=== PATIENT | female | born 1970 | race African-American/Black ===

== ENCOUNTER 2017-05-20 08:11 | Emergency (ER) | payer MEDICARE, MEDICAID ==
[2017-05-20] MEDS ORDERED: Lidocaine 1% w/Epinephrine 1:100K 20 ML VIAL ONE (09:29)
[2017-05-20] MEDS ORDERED: Sodium Bicarbonate 2.4 MEQ/5 ML ONE (09:48)
== END 2017-05-20 10:35 | disposition home or self-care (01) ==
LOC: ERS 08:11
DX: L02.412 Cutaneous abscess of left axilla (principal); E11.9 Type 2 diabetes mellitus without complications; E78.5 Hyperlipidemia, unspecified; I10 Essential (primary) hypertension; F32.9 Major depressive disorder, single episode, unspecified; F20.9 Schizophrenia, unspecified; Z79.899 Other long term (current) drug therapy; Z79.4 Long term (current) use of insulin
CPT/HCPCS: 10060; J2001

== ENCOUNTER 2017-07-23 02:45 | Emergency (ER) | payer MEDICARE, OTHER ==
[2017-07-23] MEDS ORDERED: Nitroglycerin 0.4 MG TAB (25 Tab Bottle) ONE (03:32)
[2017-07-23 03:37] LABS: #Basophils 0.1 thou/uL (0.0-0.2); #Eosinphils 0.1 thou/uL (0.0-0.7); #Lymphocytes 4.4 thou/uL (1.20-3.40); #Monocytes 0.5 thou/uL (0.11-0.59); #Neutrophils 5.6 thou/uL (1.40-6.50); %Basophils 0.5 % (0.0-1.0); %Eosinophils 1.3 % (0.0-10.0); %Lymphocytes 40.8 % (21.0-51.0); %Monocytes 4.9 % (0.0-10.0); %Neutrophils 52.6 % (42.0-75.0); Mean Corpuscular HGB CONC 33.5 g/dL (32.0-36.0); Mean Corpuscular Hemoglobin 28.7 pg (27.0-31.0); Mean Corpuscular Volume 85.7 fl (81.0-99.0); Mean Platelet Volume 7.6 fL (7.4-10.4); Platelet Count 340 thou/uL (130-400); RBC Distribution Width 11.8 % (11.5-14.5); Red Blood Cell (RBC) Count 4.52 mill/uL (4.20-5.40); White Blood Cell (WBC) Count 10.7 thou/uL (4.8-10.8)
[2017-07-23 03:51] LABS: ALT (SGPT) 12 U/L (8-55); AST (SGOT) 9 U/L (5-34); Albumin 3.8 g/dL (3.5-5.0); Alkaline Phosphatase 177 U/L (40-150); Anion Gap 13 mmol/L (10-20); BUN (Urea Nitrogen) 13 mg/dL (7.0-18.7); Bilirubin, Total 0.4 mg/dL (0.2-1.2); CK (CPK) 39 U/L (29-168); Calc. Creatinine Clearance 0 mL/min (70-130); Calcium 9.6 mg/dL (7.8-10.44); Carbon Dioxide 24 mmol/L (22-29); Chloride 101 mmol/L (98-107); Estimated GFR-MDRD 66; Glucose 522 mg/dL (70-105); Lipase 5 U/L (8-78); Protein, Total 7.8 g/dL (6.0-8.3); Sodium 134 mmol/L (136-145)
[2017-07-23 03:54] LABS: CKMB 0.6 ng/mL (0-6.6); Troponin I Less than 0.010 ng/mL (< 0.028)
[2017-07-23 03:58] LABS: Base Excess-Venous 0.2 mmol/L (0 (+/- 2.5)); Bicarbonate (HCO3v) 27.3 mmol/L (1.0-85.0); CO2 Tension (PvCO2) 53.3 mmHg (41.0-51.0); Calcium, Ionized 1.19 mmol/L (1.12-1.32); Hemoglobin - Calc 13.5 g/dL (12.0-18.0); O2 Tension (PvO2) 24.7 mmHg (35.0-45.0); Potassium 3.9 mmol/L (3.4-4.7); T. Carbon Dioxide 28.9 mmol/L (1.0-85.0); pH (Venous) 7.317 (7.35-7.45); vO2 Saturation-calc 38.4 % (94-98)
[2017-07-23 04:13] LABS: Bilirubin Negative (Negative); Blood, Urine Negative (Negative); Clarity CLEAR (Clear); Glucose, Urine (Dipstick) >=1000 mg/dL (Negative); Leukocyte Negative (Negative); Nitrite Negative (Negative); Protein, Urine (Dipstick) Negative (Neg-Trace); Specific Gravity, Urine 1.037 (1.002-1.036); Urobilinogen 0.2 mg/dL (0.2-1.0); pH, Urine 5.5 (5.0-9.0)
[2017-07-23 07:22] LABS: CKMB 0.6 ng/mL (0-6.6); Troponin I Less than 0.010 ng/mL (< 0.028)
[2017-07-23] MEDS ORDERED: Insulin Regular 300 UNITS/3 ML VIAL ONE (07:48)
--- NOTE | 2017-07-23 08:51 | RAD ---
FRONTAL VIEW CHEST: Date: 07/23/17 INDICATION: Chest pain. COMPARISON: 08/21/15. FINDINGS: The lungs are clear of focal consolidation. Lungs are hypoinflated, which accentuates the cardiomedia stinal silhouette and perihilar regions. No significant interval change. IMPRESSION: Stable appearing chest. POS: [facility]
== END 2017-07-23 10:12 | disposition short-term general hospital (02) ==
LOC: ERS 02:45
DX: E11.65 Type 2 diabetes mellitus with hyperglycemia (principal); R07.89 Other chest pain; E78.5 Hyperlipidemia, unspecified; I10 Essential (primary) hypertension; F32.9 Major depressive disorder, single episode, unspecified; F20.9 Schizophrenia, unspecified; Z79.4 Long term (current) use of insulin; Z79.899 Other long term (current) drug therapy
CPT/HCPCS: 36415; 36416; 71045; 80053; 81003; 82010; 82330; 82553; 82803; 83690; 83880; 84484; 85025; 93005; 96361; 96374; J1815

== ENCOUNTER 2017-08-10 09:06 | Outpatient (CLI) | payer MEDICARE, MEDICAID | END 2017-08-10 09:07 | disposition home or self-care (01) | LOC: BICULT 09:06 | PROVIDERS: ATTEND Otolaryngology Plastic Surgery within the Head & Neck | DX: E04.1 Nontoxic single thyroid nodule (principal); E04.2 Nontoxic multinodular goiter | CPT/HCPCS: 76536 ==

== ENCOUNTER 2017-11-24 12:25 | Outpatient (CLI) | payer MEDICARE, MEDICAID | END 2017-11-24 12:26 | disposition home or self-care (01) | LOC: BICRAD 12:25 | PROVIDERS: ATTEND Anesthesiology | DX: M25.511 Pain in right shoulder (principal); M25.512 Pain in left shoulder; M54.5 Low back pain ==

== ENCOUNTER 2018-02-28 22:12 | Emergency (ER) | payer MEDICARE, OTHER ==
[2018-02-28] MEDS ORDERED: Ketorolac Tromethamine 30 MG/ML VIAL ONE (23:13)
[2018-02-28 23:40] LABS: Bilirubin Negative (Negative); Blood, Urine Negative (Negative); Clarity CLEAR (Clear); Glucose, Urine (Dipstick) >=1000 mg/dL (Negative); Leukocyte Negative (Negative); Nitrite Negative (Negative); Protein, Urine (Dipstick) Negative (Neg-Trace); Specific Gravity, Urine 1.033 (1.002-1.036); pH, Urine 5.5 (5.0-9.0)
[2018-02-28] MEDS ORDERED: Morphine 4 MG/ML VIAL ONE (23:52)
[2018-02-28] MEDS ORDERED: Diazepam 5 MG TAB ONE (23:52)
[2018-03-01 00:03] LABS: RBC/HPF 0-3 HPF (0-3); Renal Epithelial None Seen HPF (0-3); Transitional Epithelial NONE SEEN HPF (0-3); WBC/HPF 0-3 HPF (0-3)
[2018-03-01 00:04] LABS: Bacteria/HPF None Seen HPF (None Seen); Crystals/HPF None Seen HPF (Negative); Hyaline Casts/LPF NONE SEEN LPF (0-3 Hyaline); Oval Fat Bodies/HPF None Seen HPF (None Seen); Sperm/HPF None Seen HPF (None Seen); Trichomonas/HPF None Seen HPF (None Seen); Yeast-All Forms None Seen HPF (None Seen)
[2018-03-01 01:00] LABS: Pregnancy Test - Urine (BHCG) Negative (Negative); Pregu Control Background? CLEAR/WHITE (CLR/WHITE); Pregu Control Bar Appear? YES (CONTROL BAR); Specific Gravity 1.032 (1.002-1.036)
== END 2018-03-01 01:09 | disposition home or self-care (01) ==
LOC: ERS 22:12
DX: M54.5 Low back pain (principal); E78.5 Hyperlipidemia, unspecified; I10 Essential (primary) hypertension; F20.89 Other schizophrenia; E11.9 Type 2 diabetes mellitus without complications; F32.9 Major depressive disorder, single episode, unspecified; F20.9 Schizophrenia, unspecified; Z79.4 Long term (current) use of insulin; Z79.899 Other long term (current) drug therapy
CPT/HCPCS: 81001; 81025; 96372; J1885; J2270

== ENCOUNTER 2018-03-03 21:07 | Emergency (ER) | payer MEDICARE, OTHER ==
[2018-03-03] MEDS ORDERED: Ketorolac Tromethamine 60 MG/2 ML VIAL ONE (21:51)
== END 2018-03-03 22:27 | disposition home or self-care (01) ==
LOC: ERS 21:07
DX: M79.652 Pain in left thigh (principal); E11.9 Type 2 diabetes mellitus without complications; I10 Essential (primary) hypertension
CPT/HCPCS: 96372; J1885

== ENCOUNTER → 2018-04-21 | Day surgery (SDC) | payer MEDICARE, MEDICAID ==
[2018-04-20 14:59] VITALS: BMI 34.2
[~2018-04-21] MED LIST: Lidocaine 1% PF 5 ML VIAL ONE; Sodium Bicarbonate 2.5 MEQ/5 ML VIAL ONE
--- NOTE | 2018-04-21 15:36 | ULT ---
ULTRASOUND GUIDED FINE NEEDLE ASPIRATION OF TWO SEPARATE THYROID NODULES: COMPARISON: Thyroid ultrasound 08/10/17. FINDINGS: The patient is brought to the ultrasound suite. All questions were answered. Informed consent was obt ained. Timeout performed. It was confirmed with the ordering physician that two separate fine needle aspirations were to be per formed. Using ultrasound guidance, a total of four 25 gauge aspirations were obtained of each nodule after ad equate anesthesia. Samples were given to the cytopathologist. Patient tolerated the procedure well wi thout complication. IMPRESSION: Technically successful ultrasound guided fine needle aspiration x2. POS: [facility]
== END ==
LOC: ULT 12:47
PROVIDERS: ATTEND Otolaryngology Plastic Surgery within the Head & Neck
PROC: 0G9G3ZX Drainage of Left Thyroid Gland Lobe, Percutaneous Approach, Diagnostic (ICD-10-PCS; principal; 2018-04-21)
PROC: BW4FZZZ Ultrasonography of Neck (ICD-10-PCS; 2018-04-21)
DX: E04.1 Nontoxic single thyroid nodule (principal); E11.9 Type 2 diabetes mellitus without complications; I10 Essential (primary) hypertension; E78.5 Hyperlipidemia, unspecified
CPT/HCPCS: 10022; 76942; 88173; J2001

== ENCOUNTER 2018-05-11 08:20 | Day surgery (SDC) | payer MEDICARE, MEDICAID ==
[2018-05-10 11:50] VITALS: BMI 34.3
[2018-05-11] MEDS ORDERED: Fentanyl 100 MCG/2 ML VIAL ONE ×2 (09:43→12:21)
[2018-05-11] MEDS ORDERED: Midazolam HCl 2 mg/2 ml Vial ONE (09:43)
[2018-05-11] MEDS ORDERED: Bacitracin Zinc Ointment 30 gm TUBE ONE (09:46)
[2018-05-11] MEDS ORDERED: Lidocaine 1% w/Epinephrine 1:100K 30 ML VIAL ONE (09:46)
[2018-05-11] MEDS ORDERED: Promethazine HCl 25 MG/ML VIAL ONE (14:17)
[2018-05-11] MEDS ORDERED: PROPOFOL 200 MG/20 ML VIAL ONE (15:29)
[2018-05-11] MEDS ORDERED: Succinylcholine Chloride 20 MG/ML 10 ml SYRINGE FS ONE (15:29)
[2018-05-11] MEDS ORDERED: PHENYLEPHRINE-NS 100 MCG/ML 10 ML SYRINGE ONE (15:29)
[2018-05-11] MEDS ORDERED: Dexamethasone 20 MG/5 ML VIAL ONE (15:29)
[2018-05-11] MEDS ORDERED: Lidocaine 1% PF 5 ML VIAL ONE (15:29)
[2018-05-11] MEDS ORDERED: Ondansetron PF 4 MG/2 ML Vial ONE (15:29)
--- NOTE | 2018-05-12 11:17 | OP ---
DATE OF PROCEDURE: 05/11/2018 PREOPERATIVE DIAGNOSIS: Left thyroid mass. POSTOPERATIVE DIAGNOSIS: Left thyroid mass. PROCEDURE PERFORMED: Left hemithyroidectomy and isthmusectomy with intraoperative laryngeal nerve monitor. ESTIMATED BLOOD LOSS: 20 mL. COMPLICATIONS: None. ANESTHESIA: GETA. DESCRIPTION OF PROCEDURE: The patient was taken to the operating room, placed supine on the table. General endotracheal anesthesia was obtained by the anesthesia staff. The tube was secured in the midline of the upper lip. The intraoperative laryngeal electrodes were confirmed to be between the true vocal cords and the laryngeal nerve monitor was turned on and remained on throughout the procedure. Following this, the patient was prepped and draped in standard surgical fashion. Following this, an incision was made approximately 2 cm above the sternal notch in a horizontal fashion and was created using a 15 blade. Dissection was then carried through the subcutaneous tissue and the platysmal muscle. Following this, platysmal flaps were elevated superiorly to the level of the thyroid notch and inferiorly to the clavicles. Strap muscles were identified and were in the midline. The large left thyroid mass was immediately encountered and dissection was carried down the left thyroid lobe. Following this, the left thyroid mass was . It was removed by removing the thyroid isthmus and the right thyroid gland remnant was suture ligated. The inferior portion of the left thyroid lobe along with this mass was then removed using suture ligation. The left recurrent laryngeal nerve was identified and was protected throughout the procedure. The remainder of the thyroid gland did not have any palpable nodules. This portion of the gland was removed. Hemostasis was obtained. The strap muscles were reapproximated using Monocryl stitch. A drain was placed and the platysmal muscles and subcutaneous layers were closed using a Monocryl stitch. The skin was closed using Dermabond. Patient tolerated the procedure well. Job ID: [id number]
--- NOTE | 2018-05-13 20:47 | EKG ---
Test Reason : PREOP Blood Pressure : / mmHG Vent. Rate : 070 BPM Atrial Rate : 070 BPM P-R Int : 170 ms QRS Dur : 078 ms QT Int : 416 ms P-R-T Axes : 056 -01 008 degrees QTc Int : 449 ms Normal sinus rhythm Cannot rule out Anterior infarct , age undetermined Abnormal ECG No previous ECGs available Confirmed by Pb ROBERT ([id number]) on 05/13/2018 8:47:32 PM Referred By: NOAM Confirmed By:Pb ROBERT
== END 2018-05-11 15:45 | disposition home or self-care (01) ==
LOC: SDC 08:20
PROVIDERS: ATTEND Otolaryngology Plastic Surgery within the Head & Neck
PROC: 0GTJ0ZZ Resection of Thyroid Gland Isthmus, Open Approach (ICD-10-PCS; principal; 2018-05-11)
PROC: 0GTG0ZZ Resection of Left Thyroid Gland Lobe, Open Approach (ICD-10-PCS; 2018-05-11)
DX: E04.1 Nontoxic single thyroid nodule (principal); E11.9 Type 2 diabetes mellitus without complications; I10 Essential (primary) hypertension; E78.5 Hyperlipidemia, unspecified; Z79.82 Long term (current) use of aspirin; Z79.84 Long term (current) use of oral hypoglycemic drugs; Z79.899 Other long term (current) drug therapy; Z88.1 Allergy status to other antibiotic agents
CPT/HCPCS: 36415; 85014; 88307; 93005; 93010; 96374; J0131; J1100; J2001; J2250; J2405; J2550; J2704; J3010

== ENCOUNTER 2018-09-18 18:22 | Emergency (ER) | payer MEDICARE, OTHER ==
[2018-09-18] MEDS ORDERED: Insulin Regular 300 UNITS/3 ML VIAL ONE (19:35)
[2018-09-18] MEDS ORDERED: Ketorolac Tromethamine 60 MG/2 ML VIAL ONE (19:35)
== END 2018-09-18 20:29 | disposition home or self-care (01) ==
LOC: ERS 18:22
DX: S16.1XXA Strain of muscle, fascia and tendon at neck level, initial encounter (principal); E11.9 Type 2 diabetes mellitus without complications; E78.5 Hyperlipidemia, unspecified; I10 Essential (primary) hypertension; F32.9 Major depressive disorder, single episode, unspecified; F25.9 Schizoaffective disorder, unspecified; Z79.899 Other long term (current) drug therapy; Z79.4 Long term (current) use of insulin; V23.5XXA Motorcycle passenger injured in collision with car, pick-up truck or van in traffic accident, initial encounter
CPT/HCPCS: 36416; 96372; J1815; J1885

== ENCOUNTER 2019-04-27 14:59 | Outpatient (CLI) | payer MEDICARE, MEDICAID ==
--- NOTE | 2019-04-27 15:17 | RAD ---
XR Lumbar Spine Min 4 View HISTORY: Low back pain, lumbar radiculopathy FINDINGS: No acute fracture, subluxation or bony destruction is seen. There is minimal levoscoliosis and mild d egenerative changes. No change in alignment is seen on flexion or extension.
--- NOTE | 2019-04-27 16:56 | MRI ---
MRI OF THE LUMBAR SPINE WITHOUT CONTRAST: 04/27/19 HISTORY: 48-year-old female with low back pain with radiation down the left leg. FINDINGS: The conus medullaris ends at L1-2 level. The vertebral body heights and marrow signal is maintained. Disc desiccation is noted at L3-4 and L4-5 levels. There are bilateral facet hypertrophic changes at L3-4 and L4-5 levels. Mild disc bulges are also noted at these levels. There is mild neural foramina l stenosis on the left at L3-4 and L4-5 levels. Mild to moderate right sided neural foraminal stenosi s at L4-5 level. No significant central canal stenosis of focal disc protrusion is seen. The paraspin al musculature is normal. IMPRESSION: Lumbar spondylosis with neural foraminal stenosis as discussed above. POS: [facility]
== END 2019-04-27 15:00 | disposition home or self-care (01) ==
LOC: BICMRI 14:59
PROVIDERS: ATTEND Physician Assistant Surgical
DX: M47.26 Other spondylosis with radiculopathy, lumbar region (principal); M48.061 Spinal stenosis, lumbar region without neurogenic claudication
CPT/HCPCS: 72110; 72148